=== PATIENT | female | born 1940 | race Caucasian/White ===

== ENCOUNTER → 2016-04-29 | Outpatient (CLI) | payer OTHER ==
[2016-04-29 14:22] LABS: BASO ABS # 0.05 K/uL (0-0.2); COMPLETE YES; EOS % 1.9 %; HEMATOCRIT 42.3 % (37-47); IG% 0.2 %; LYMPH % 20.2 %; LYMPH ABS # 0.97 K/uL (1.2-3.4); MEAN CELL VOLUME 87.8 fL (80-100); MEAN CORPUSCULAR HEMOGLOBIN 29.7 pg (25-34); MEAN CORPUSCULAR HGB CONC 33.8 g/dl (32-36); MEAN PLATELET VOLUME 10.1 fL (7.4-10.4); MONO % 10.6 %; NEUT % 66.1 %; PLATELET COUNT 262 K/uL (130-400); RED BLOOD COUNT 4.82 M/uL (4.2-5.4)
[2016-04-29 14:27] LABS: ALT/SGPT 18 U/L (12-78); BLOOD UREA NITROGEN 14 mg/dl (7-18); BUN/CREATININE RATIO 14.2 (10-20); CALCIUM 9.6 mg/dl (8.5-10.1); CARBON DIOXIDE 24 mmol/L (21-32); CHLORIDE 110 mmol/L (98-107); CHOLESTEROL 177 mg/dl (0-200); GLUCOSE 95 mg/dl (70-99); POTASSIUM 4.2 mmol/L (3.5-5.1); SODIUM 144 mmol/L (136-145)
[2016-04-29 14:37] LABS: ALB/GLOB RATIO 0.9 (0.9-2); ALKALINE PHOSPHATASE 97 U/L (45-117); AST/SGOT 18 U/L (15-37); CHOLESTEROL/HDL RATIO 2.5; HDL CHOLESTEROL 71 mg/dl; LDL CHOLESTEROL CALCULATED 88 mg/dl; TRIGLYCERIDES 91 mg/dl (0-150); VERY LOW DENSITY LIPOPROT CALC 18 mg/dl
--- NOTE | 2016-05-06 10:52 | CODING QUERY MEDICAL NECESSITY ---
SUPPORTING DIAGNOSIS NEEDED A supporting diagnosis is required for the test/procedure performed on this patient in order for us to be reimbursed by the patient's insurance. Please provide a supporting diagnosis for the following test/procedure listed below next to the test name along with your signature. *If there is no additional diagnosis for this patient that would support the following test/procedure please document that below next to the test/procedure. Test(s)/Procedure(s) that require a supporting diagnosis: DOS 04/29 * Vitamin D DIAGNOSIS: Provider Signature: Date: Thank you Nyasia Riggs Health Information Management Once completed, please kindly fax back to [phone] For questions please call [phone]
== END | disposition home or self-care (01) ==
LOC: C.LABBC 09:23
PROVIDERS: ATTEND Internal Medicine Geriatric Medicine
DX: M85.80 Other specified disorders of bone density and structure, unspecified site (principal); I10 Essential (primary) hypertension; E78.5 Hyperlipidemia, unspecified; M19.90 Unspecified osteoarthritis, unspecified site; G43.909 Migraine, unspecified, not intractable, without status migrainosus; M54.16 Radiculopathy, lumbar region; E03.9 Hypothyroidism, unspecified

== ENCOUNTER → 2016-05-05 | Outpatient (CLI) | payer OTHER ==
--- NOTE | 2016-05-05 10:00 | DIAGNOSTIC IMAGING REPORT ---
RIGHT FOOT 3 VIEWS CLINICAL HISTORY: Right foot pain. FINDINGS: 3 views of the right foot are obtained. No prior studies are available for comparison at the time of dictation. The skeletal structures are osteopenic. No fracture is seen. There is hallux valgus with arthritic change at the first metatarsophalangeal joint. There is a large plantar calcaneal enthesophyte. Degenerative spurring is seen along the dorsal aspect of the tarsal bones. The joint spaces of the foot are otherwise well-maintained. Mild dorsal soft tissue swelling is noted. IMPRESSION: 1. Mild dorsal soft tissue swelling with no acute bony abnormality identified in the right foot. 2. Osteopenia with hallux valgus, heel spurs, and arthritic change as above. Electronically signed by: Eddy Baeza M.D. 05/05/2016 9:58 AM Dictated Date/Time: 05/05/2016 9:56 AM
== END | disposition home or self-care (01) ==
LOC: C.RADBC 09:37
PROVIDERS: ATTEND Internal Medicine Geriatric Medicine
DX: M79.671 Pain in right foot (principal); M85.871 Other specified disorders of bone density and structure, right ankle and foot

== ENCOUNTER → 2016-05-14 | Outpatient (CLI) | payer OTHER ==
--- NOTE | 2016-05-14 12:39 | MAMMOGRAPHY REPORT ---
UNILATERAL LEFT DIGITAL DIAGNOSTIC MAMMOGRAM TOMOSYNTHESIS WITH CAD AND TARGETED LEFT ULTRASOUND: 05/14/2016 CLINICAL HISTORY: 75-year-old woman who presents with "scabbing and a white pustule" of the left nip ple as well as a small amount of discharge which she reports has since resolved. No palpable mass. No family history of breast cancer. TECHNIQUE: Left CC and MLO 2-D digital and tomosynthesis images, spot magnification left CC and ML views were obtained. Current study was also evaluated with a Computer Aided Detection (CAD) system. COMPARISON: Comparison is made to exams dated: 09/04/2015 mammogram, 08/30/2014 mammogram, and 014 mammogram - [facility]. BREAST COMPOSITION: There are scattered areas of fibroglandular density in the left breast. FINDINGS: There are several groupings of very faint punctate microcalcifications in the visualized a nterior left breast on the spot magnification views. None demonstrate layering to confirm benign mi lk of calcium. When comparing to prior available mammograms, some of the faint groupings of calcifi cations have been present dating back to 2008. These could represent benign fibrocystic changes. N o new suspicious mass, focal area of architectural distortion or developing asymmetry is seen in the breasts. On visual inspection there is a 5 mm area of erythema with central white punctum of the left nipple when compared to the right. Sonographic evaluation performed of the left nipple and periareolar/ret roareolar breast demonstrate no discrete solid or cystic mass. IMPRESSION: ACR BI-RADS CATEGORY 4: SUSPICIOUS, TARGETED ULTRASOUND ACR BI-RADS CATEGORY 4: SUSPICI OUS 1. There is a small 5 mm erythematous region with central white punctum of the left nipple that is visually asymmetric compared to the right. Given the reported scabbing and nipple discharge as well as this appearance, further evaluation with a surface, shape or punch biopsy is recommend to exclud e the possibility of Paget's disease of the nipple. 2. No new suspicious breast mass is identified. However, based on the spot magnification views the re are increasingly conspicuous groupings of punctate microcalcifications throughout the anterior le ft breast. Some may have been present dating back to 2008 and most likely represent fibrocystic kasi nges. Given the increased conspicuity, a short interval follow-up left mammogram including spot mag nification views is recommended to ensure stability in 6 months. 3. The patient is due for annual bilateral mammography in August and therefore would recommend bilate ral diagnostic mammograms plus left spot magnification views in late September/October. These results and recommendations were discussed with the patient at the time of the exam. Approximately 10% of breast cancers are not detected with mammography. A negative mammographic repor t should not delay biopsy if a clinically suggestive mass is present. Ella Talavera M.D. ay/:05/14/2016 10:43:53 Room Service Supervisor: Sophia Abdi, [facility] letter sent: Abnormal 4/5 BI-RADS Code: ACR BI-RADS Category 4: Suspicious Ultrasound BI-RADS: ACR BI-RADS Category 4: Suspic ious
== END | disposition home or self-care (01) ==
LOC: C.MAMM 09:51
PROVIDERS: ATTEND Internal Medicine Geriatric Medicine
DX: N64.52 Nipple discharge (principal)

== ENCOUNTER → 2016-08-01 | Outpatient (CLI) | payer OTHER ==
[2016-08-01 13:59] LABS: THYROID STIMULATING HORMONE 4.62 uIu/ml (0.300-4.500)
== END | disposition home or self-care (01) ==
LOC: C.LABBC 09:27
PROVIDERS: ATTEND Internal Medicine Geriatric Medicine
DX: E03.9 Hypothyroidism, unspecified (principal)

== ENCOUNTER → 2016-10-09 | Outpatient (CLI) | payer OTHER ==
--- NOTE | 2016-10-09 12:47 | MAMMOGRAPHY REPORT ---
BILATERAL DIGITAL DIAGNOSTIC MAMMOGRAM TOMOSYNTHESIS WITH CAD: 10/09/2016 CLINICAL HISTORY: Short interval follow-up of left breast calcifications. Due for routine mammograph y of the right breast. TECHNIQUE: Breast tomosynthesis in addition to standard 2D mammography was performed. Current study was also evaluated with a Computer Aided Detection (CAD) system. Bilateral CC and MLO 2-D and tomosy nthesis images and spot magnification left CC and ML views were obtained. COMPARISON: Comparison is made to exams dated: 05/14/2016 ultrasound, 05/14/2016 mammogram, 09/04/2015 ma mmogram, 08/30/2014 mammogram, 08/25/2013 mammogram, and 02/28/2013 mammogram - [facility] enter. BREAST COMPOSITION: There are scattered areas of fibroglandular density in both breasts. FINDINGS: Spot magnification views demonstrate multiple groupings of faint punctate calcifications w ithin the left breast. The calcifications are stable on spot magnification views dated 05/14/2016, and are likely stable compared to multiple prior exams including the August 2010 exam when accounting for differences in mammographic technique. Given the long-term stability, the calcifications are felt to be benign. The remainder of both breasts are stable compared to prior exams, without suspicious mas ses, calcifications, or areas of architectural distortion noted. Benign-appearing right breast calci fications are also stable. IMPRESSION: ACR BI-RADS CATEGORY 2: BENIGN Multiple groupings of faint punctate calcifications in the left breast are stable on spot magnificati on views from May 2016 and are likely also stable dating back to at least the 2010 exam. Given the long-term stability and benign morphology, the calcifications are considered benign. There is no ma mmographic evidence of malignancy in either breast. A 1 year screening mammogram is recommended. The patient has been verbally notified of the results. Approximately 10% of breast cancers are not detected with mammography. A negative mammographic report should not delay biopsy if a clinically suggestive mass is present. Ayse Estrada M.D. /:10/09/2016 11:43:06 Container Filler: Sophia Abdi [facility] letter sent: Normal 1/2 BI-RADS Code: ACR BI-RADS Category 2: Benign
== END | disposition home or self-care (01) ==
LOC: C.MAMM 10:17
PROVIDERS: ATTEND Obstetrics & Gynecology
DX: R92.1 Mammographic calcification found on diagnostic imaging of breast (principal)

== ENCOUNTER → 2017-01-21 | Outpatient (CLI) | payer OTHER | END | disposition home or self-care (01) | LOC: C.PAPS 10:51 | PROVIDERS: ATTEND Obstetrics & Gynecology | DX: Z12.4 Encounter for screening for malignant neoplasm of cervix (principal) ==

== ENCOUNTER → 2017-04-30 | Outpatient (CLI) | payer OTHER ==
[2017-04-30 12:20] LABS: BASO % 1.1 %; BASO ABS # 0.06 K/uL (0-0.2); EOS % 3.4 %; EOS ABS # 0.18 K/uL (0-0.5); HEMATOCRIT 42.9 % (37-47); HEMOGLOBIN 14.4 g/dL (12.0-16.0); IG# 0.01 K/uL (0.00-0.02); LYMPH % 22.4 %; LYMPH ABS # 1.18 K/uL (1.2-3.4); MEAN CELL VOLUME 88.1 fL (80-100); MEAN CORPUSCULAR HEMOGLOBIN 29.6 pg (25-34); MEAN CORPUSCULAR HGB CONC 33.6 g/dl (32-36); MONO % 9.5 %; NEUT % 63.4 %; NEUT ABS # 3.34 K/uL (1.4-6.5); PLATELET COUNT 267 K/uL (130-400); RED CELL DISTRIBUTION WIDTH CV 13.9 % (11.5-14.5); WHITE BLOOD COUNT 5.27 K/uL (4.8-10.8)
[2017-04-30 12:32] LABS: ALBUMIN 3.6 gm/dl (3.4-5.0); ALT/SGPT 24 U/L (12-78); BLOOD UREA NITROGEN 15 mg/dl (7-18); CALCIUM 9.5 mg/dl (8.5-10.1); CARBON DIOXIDE 25 mmol/L (21-32); CHOLESTEROL 201 mg/dl (0-200); CREATININE 0.96 mg/dl (0.60-1.20); GLUCOSE 81 mg/dl (70-99); POTASSIUM 4.2 mmol/L (3.5-5.1); SODIUM 141 mmol/L (136-145)
[2017-04-30 12:41] LABS: ALKALINE PHOSPHATASE 91 U/L (45-117); AST/SGOT 21 U/L (15-37); LDL CHOLESTEROL CALCULATED 115 mg/dl; TOTAL PROTEIN 7.1 gm/dl (6.4-8.2)
== END | disposition home or self-care (01) ==
LOC: C.LAB 10:05
PROVIDERS: ATTEND Internal Medicine Geriatric Medicine
DX: I10 Essential (primary) hypertension (principal); E78.5 Hyperlipidemia, unspecified; M54.16 Radiculopathy, lumbar region; E03.9 Hypothyroidism, unspecified; R25.2 Cramp and spasm; M19.90 Unspecified osteoarthritis, unspecified site

== ENCOUNTER → 2017-05-26 | Outpatient (CLI) | payer OTHER | END | disposition home or self-care (01) | LOC: C.RDSM 09:32 | PROVIDERS: ATTEND Physical Medicine & Rehabilitation Sports Medicine | DX: M25.562 Pain in left knee (principal) ==

== ENCOUNTER → 2017-06-01 | Outpatient (CLI) | payer OTHER | END | disposition home or self-care (01) | LOC: C.MAMM 13:31 | PROVIDERS: ATTEND Internal Medicine Geriatric Medicine | DX: M85.851 Other specified disorders of bone density and structure, right thigh (principal); M85.852 Other specified disorders of bone density and structure, left thigh; E28.39 Other primary ovarian failure ==

== ENCOUNTER → 2017-10-21 | Outpatient (CLI) | payer OTHER ==
--- NOTE | 2017-10-21 13:51 | MAMMOGRAPHY REPORT ---
BILATERAL DIGITAL SCREENING MAMMOGRAM TOMOSYNTHESIS WITH CAD: 10/21/2017 CLINICAL HISTORY: Routine screening. Patient has no complaints. TECHNIQUE: The study was acquired using full field digital technology and interpreted from soft copy. Breast tomosynthesis in addition to standard 2D mammography was performed. Current study was also ev aluated with a Computer Aided Detection (CAD) system. COMPARISON: Comparison is made to exams dated: 10/09/2016 mammogram, 05/14/2016 mammogram, 09/04/2015 tracy mogram, 08/30/2014 mammogram, 08/25/2013 mammogram, and 02/28/2013 mammogram - [facility] nter. BREAST COMPOSITION: There are scattered areas of fibroglandular density in both breasts. FINDINGS: There are multiple stable groupings of punctate microcalcifications throughout the left gre ater than right breast. Stable asymmetry in the lateral anterior left breast on the CC view appears stable dating back to at least 2008, therefore likely benign. No suspicious mass, architectural disto rtion or cluster of microcalcifications is seen. IMPRESSION: ACR BI-RADS CATEGORY 1: NEGATIVE There is no mammographic evidence of malignancy. A 1 year screening mammogram is recommended.( 019) The patient will receive written notification of the results. Some breast cancers are not detected with mammography. A negative mammographic report should not neno y biopsy if a clinically suggestive mass is present. Ella Talavera M.D. ay/:10/21/2017 07:44:58 Sewage Plant Operator: Sophia Abdi, [facility] letter sent: Normal 1/2 BI-RADS Code: ACR BI-RADS Category 1: Negative
== END | disposition home or self-care (01) ==
LOC: C.MAMM 07:11
PROVIDERS: ATTEND Obstetrics & Gynecology
DX: Z12.31 Encounter for screening mammogram for malignant neoplasm of breast (principal)